=== PATIENT | female | born 2000 | race Caucasian/White ===

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

== ENCOUNTER 2018-06-17 04:44 | Emergency (ER) | payer MEDICAID ==
[~2018-06-17] VITALS: Ht 157.5 cm; Wt 69.9 kg
[~2018-06-17 04:44] MED LIST: ACET500C5 PO; CEPH-443 PO; METO10TA92 PO; ONDA4TAB14 PO
[2018-06-17 04:48] VITALS: BP 134/79; PULSE 112; RESP 20; Ht 157.5 cm; Wt 69.9 kg
[2018-06-17] MEDS ORDERED: ACET325T33 PO (06:19)
[2018-06-17] MEDS ORDERED: AMOX1TAB10 PO (06:19)
--- NOTE | 2018-06-17 06:26 | ERD ---
ER Documentation Chief Complaint Chief Complaint R EAR PAIN, ASHRAF X'S 3 DAYS HPI 18-year-old female presenting with right ear pain times 3 days. Patient has had a mild runny nose with a headache but no cough. No fevers. She has not taken medications for symptoms. Patient is currently and did not know she could take medication. Denies any vaginal bleeding or abdominal pain. Denies any chest pain or shortness of breath. Denies medical problems. NKDA. Surgical history denies. Up-to-date on vaccinations. Social history denies ROS All systems reviewed and are negative except as per history of present illness. Medications Home Meds Active Scripts Acetaminophen* (Tylenol*) 325 Mg Tablet, 2 TAB PO Q6 PRN for PAIN AND OR ELEVATED TEMP, #20 TAB Prov:VENITA BAUTISTA PA-C 06/17/18 Amoxicillin/Potassium Clav (Amox-Clav 875-125 mg Tablet) 875-125 mg Tab, 1 TAB PO BID for 7 Days, #14 TAB Prov:VENITA BAUTISTA PA-C 06/17/18 Cephalexin* (Keflex*) 500 Mg Capsule, 500 MG PO QID for 5 Days, CAP Prov:YFN BLAND MD 12/28/17 Metoclopramide* (Reglan*) 10 Mg Tablet, 10 MG PO Q6 PRN for NAUSEA AND/OR VOMITING, #18 TAB Prov:YFN BLAND MD 12/28/17 Cephalexin* (Keflex*) 500 Mg Capsule, 500 MG PO QID for 10 Days, CAP Prov:MARY MCPHERSON NP 12/12/17 Acetaminophen* (Tylophen*) 500 Mg Capsule, 1 CAP PO Q6H PRN for PAIN AND OR ELEVATED TEMP, #20 CAP Prov:MARY MCPHERSON NP 12/12/17 Ondansetron (Ondansetron Odt) 4 Mg Tab.rapdis, 4 MG PO Q6H PRN for NAUSEA AND/OR VOMITING, #20 TAB Prov:MARY MCPHERSON NP 12/12/17 Reported Medications [none] Unknown Strength No Conflict Check 12/12/17 Allergies Allergies: Coded Allergies: No Known Allergy (Unverified , 12/12/17) PMhx/Soc Medical and Surgical Hx: pt denies Medical Hx, pt denies Surgical Hx Hx Alcohol Use: No Hx Tobacco Use: No Smoking Status: Never smoker FmHx Family History: No diabetes, No coronary disease, No other Physical Exam Vitals Vital Signs Date Temp Pulse Resp B/P (MAP) Pulse Ox O2 O2 Flow FiO2 Time Delivery Rate 06/17/18 97.3 112 20 134/79 100 04:48 (97) Physical Exam GENERAL: The patient is well-appearing, well-nourished, in no acute distress HEENT: Atraumatic. Conjunctivae are pink. Pupils equal, round, and reactive to light. There is no scleral icterus. Tympanic membrane erythematous with bulging to the right side. No perforation. Purulence noted behind the TM.. Oropharynx clear. NECK: C-spine is soft and supple. There is no meningismus. There is no cervical lymphadenopathy. CHEST: Clear to auscultation bilaterally. There are no rales, wheezes or rhonchi. HEART: Regular rate and rhythm. No murmurs, clicks, rubs or gallops. Results 24 hrs Current Medications Medications Dose Sig/Franny Start Time Status Last (Trade) Ordered Route PRN Stop Time Admin Dose Reason Admin 650 mg ONCE ONCE 06/17/18 Acetaminophen PO 06:30 (Tylenol 06/17/18 06:31 Tab) 875 mg ONCE ONCE 06/17/18 Amoxicillin/ PO 06:30 Clavulanate 06/17/18 06:31 Potassium (Augmentin) Procedures/MDM ER course: Augmentin and Tylenol given in ED. MDM: 18-year-old female presenting with otitis media. I have low suspicion for meningitis or sepsis. I have low suspicion for mastoiditis. Patient's exam is non-concerning and patient will be treated with oral antibiotics. I do not feel that imaging or blood work was indicated. Patient is told symptoms change or worsen to return immediately to the ER. All questions answered at discharge Departure Diagnosis: Primary Impression: Right ear pain Condition: Stable Patient Instructions: Otitis Media, Abx Tx (Adult) Referrals: COMMUNITY CLINICS YOU HAVE RECEIVED A MEDICAL SCREENING EXAM AND THE RESULTS INDICATE THAT YOU DO NOT HAVE A CONDITION THAT REQUIRES URGENT TREATMENT IN THE EMERGENCY DEPARTMENT. FURTHER EVALUATION AND TREATMENT OF YOUR CONDITION CAN WAIT UNTIL YOU ARE SEEN IN YOUR DOCTORS OFFICE WITHIN THE NEXT 1-2 DAYS. IT IS YOUR RESPONSIBILITY TO MAKE AN APPOINTMENT FOR FOLOW-UP CARE. IF YOU HAVE A PRIMARY DOCTOR --you should call your primary doctor and schedule an appointment IF YOU DO NOT HAVE A PRIMARY DOCTOR YOU CAN CALL OUR PHYSICIAN REFERRAL HOTLINE AT IF YOU CAN NOT AFFORD TO SEE A PHYSICIAN YOU CAN CHOSE FROM THE FOLLOWING [facility] [address] [facility] [address] [facility] [address] [facility] [address] [facility] [address] [facility]. [facility]. [address] Additional Instructions: FOLLOW UP WITH YOUR PRIMARY CARE PHYSICIAN TOMORROW.Return to this facility if you are not improving as expected. VENITA BAUTISTA PA-C Jun 17, 2018 06:26
[2018-06-17] MEDS ORDERED: ACETAMINOPHEN 325 MG TAB PO ONE (06:30)
[2018-06-17] MEDS ORDERED: AMOXICILLIN/CLAV 875 MG TAB PO ONE (06:30)
== END 2018-06-17 06:38 | disposition home or self-care (01) ==
LOC: FTE 04:44
DX: H92.01 Otalgia, right ear (principal)
CPT/HCPCS: Z7502; Z7610; 99283

== ENCOUNTER 2018-10-24 14:04 | Emergency (ER) | payer MEDICAID ==
[~2018-10-24] VITALS: Ht 157.5 cm; Wt 78.0 kg
[~2018-10-24 14:04] MED LIST changes: +ACET325T33 PO; +AMOX1TAB10 PO; +BACI28.34 TOP; +NAPR-985 PO
[2018-10-24 14:06] VITALS: BP 111/59; PULSE 60; RESP 18; Ht 157.5 cm; Wt 78.0 kg
[2018-10-24] MEDS ORDERED: LIDOCAINE 1% (MPF) 5 ML VIAL INJ ONE (15:00)
--- NOTE | 2018-10-24 15:42 | ERD ---
ER Documentation Chief Complaint Chief Complaint RIGHT BIG TOE INGROWN TOE NAIL HPI 18 yr old female presenting with ingrown toenail to her right big toe. She states is been bothering her for the last 5 days. Has not use any medications on it is never had this before. Denies any medical problems. NKDA. Surgical history denies. Social history denies ROS All systems reviewed and are negative except as per history of present illness. Medications Home Meds Active Scripts Naproxen* (Naprosyn*) 500 Mg Tablet, 500 MG PO BID PRN for PAIN AND/OR INFLAMMATION, #30 TAB Prov:VENITA BAUTISTA PA-C 10/24/18 Bacitracin* (Bacitracin Zinc Oint*) 28.35 Gm Oint, 1 APPLIC TOP BID, #1 TUB APPLI TO Prov:VENITA BAUTISTA PA-C 10/24/18 Acetaminophen* (Tylenol*) 325 Mg Tablet, 2 TAB PO Q6 PRN for PAIN AND OR ELEVATED TEMP, #20 TAB Prov:VENITA BAUTISTA PA-C 06/17/18 Amoxicillin/Potassium Clav (Amox-Clav 875-125 mg Tablet) 875-125 mg Tab, 1 TAB PO BID for 7 Days, #14 TAB Prov:VENITA BAUTISTA PA-C 06/17/18 Cephalexin* (Keflex*) 500 Mg Capsule, 500 MG PO QID for 5 Days, CAP Prov:YFN BLAND MD 12/28/17 Metoclopramide* (Reglan*) 10 Mg Tablet, 10 MG PO Q6 PRN for NAUSEA AND/OR VOMITING, #18 TAB Prov:YFN BLAND MD 12/28/17 Cephalexin* (Keflex*) 500 Mg Capsule, 500 MG PO QID for 10 Days, CAP Prov:MARY MCPHERSON NP 12/12/17 Acetaminophen* (Tylophen*) 500 Mg Capsule, 1 CAP PO Q6H PRN for PAIN AND OR ELEVATED TEMP, #20 CAP Prov:MARY MCPHERSON NP 12/12/17 Ondansetron (Ondansetron Odt) 4 Mg Tab.rapdis, 4 MG PO Q6H PRN for NAUSEA AND/OR VOMITING, #20 TAB Prov:MARY MCPHERSON MCGREGOR TCynthia LOPEZ 12/12/17 Reported Medications [none] Unknown Strength No Conflict Check 12/12/17 Allergies Allergies: Coded Allergies: No Known Allergy (Unverified , 10/24/18) PMhx/Soc Medical and Surgical Hx: pt denies Medical Hx, pt denies Surgical Hx Hx Alcohol Use: No Hx Substance Use: No Hx Tobacco Use: No Smoking Status: Never smoker FmHx Family History: No diabetes, No coronary disease, No other Physical Exam Vitals Vital Signs Date Temp Pulse Resp B/P (MAP) Pulse Ox O2 O2 Flow FiO2 Time Delivery Rate 10/24/18 98.1 60 18 111/59 99 14:06 (76) Physical Exam GENERAL: The patient is well-appearing, well-nourished, in no acute distress CHEST: Clear to auscultation bilaterally. There are no rales, wheezes or rhonchi. HEART: Regular rate and rhythm. No murmurs, clicks, rubs or gallops. EXTREMITIES: Equal pulses bilaterally. There is no peripheral clubbing, cyanosis or edema. No focal swelling or erythema. Full range of motion. NEUROLOGIC: Alert and oriented. Cranial nerves II through XII intact. Motor strength in all 4 extremities with 5 out of 5 strength. Sensation grossly intact. Normal speech and gait. SKIN: Erythema noted to the lateral portion of the right great toenail. No purulence or fluctuance. Tender to palpation Results 24 hrs Current Medications Medications Dose Sig/Franny Start Time Status Last (Trade) Ordered Route PRN Stop Time Admin Dose Reason Admin Lidocaine 5 ml ONCE ONCE 10/24/18 DC (Xylocaine INJ 15:00 10/24/18 1% (Mpf)) 15:01 Procedures/MDM ER course: Plain lidocaine injected injected into right great toe via digital block. Toe was adequately numbed and lateral portion of the nail was removed without complication. Bandage was applied. MDM: 18-year-old female complaining of ingrown toenail. I have low suspicion for deep tracking infection. Patient had lateral portion of the nail removed which is causing ingrown pain and infection. Patient is discharged with strict ER precautions. All questions answered at discharge Departure Diagnosis: Primary Impression: Ingrown toenail Condition: Stable Patient Instructions: Ingrown Toenail, Excised Referrals: [facility] YOU HAVE RECEIVED A MEDICAL SCREENING EXAM AND THE RESULTS INDICATE THAT YOU DO NOT HAVE A CONDITION THAT REQUIRES URGENT TREATMENT IN THE EMERGENCY DEPARTMENT. FURTHER EVALUATION AND TREATMENT OF YOUR CONDITION CAN WAIT UNTIL YOU ARE SEEN IN YOUR DOCTORS OFFICE WITHIN THE NEXT 1-2 DAYS. IT IS YOUR RESPONSIBILITY TO M OLENA AN APPOINTMENT FOR FOLOW-UP CARE. IF YOU HAVE A PRIMARY DOCTOR --you should call your primary doctor and schedule an appointment IF YOU DO NOT HAVE A PRIMARY DOCTOR YOU CAN CALL OUR PHYSICIAN REFERRAL HOTLINE AT IF YOU CAN NOT AFFORD TO SEE A PHYSICIAN YOU CAN CHOSE FROM THE FOLLOWING [facility] [address] [facility]. [facility] [address] [facility] [facility] [address] [facility]. [facility] [address] [facility] [facility] [address] [facility]. [facility] [address] Additional Instructions: FOLLOW UP WITH YOUR PRIMARY CARE PHYSICIAN TOMORROW.Return to this facility if you are not improving as expected. VENITA BAUTISTA PA-C Oct 24, 2018 15:42
== END 2018-10-24 15:44 | disposition home or self-care (01) ==
LOC: FTE 14:04
DX: L60.0 Ingrowing nail (principal)
CPT/HCPCS: 11765; Z7502; Z7610